=== PATIENT | male | born 1955 | race Caucasian/White ===

== ENCOUNTER 2017-05-09 07:36 | Inpatient (IN) | payer BC ==
[~2017-05-09 07:36] MED LIST: MORPHINE SULFATE 15 MG TABLET.SA PO PRN; ROPIVACAINE HCL/PF 100 MG, EPINEPHrine 0.2 MG, KETOROLAC TROMETHAMINE 30 MG in NORMAL S... IJ PRN; TRANEXAMIC ACID 1,000 MG in NORMAL SALINE 100 ML IV PRN; ceFAZolin SODIUM 1 GM VIAL IV PRN
[2017-05-09] MEDS: RINGER'S SOLUTION,LACTATED 1,000 ML IV PRN ×3 (08:21→18:01)
--- NOTE | 2017-05-09 10:09 | PREOP NOTE ---
Preoperative Progress Note - Preoperative Changes Changes to Preop Condition?: No Changes
[2017-05-09] MEDS ORDERED: RINGER'S SOLUTION,LACTATED 1,000 ML IV ONE ×2 (12:45→13:30)
[2017-05-09] MEDS ORDERED: ONDANSETRON HCL/PF 2 MG/ML VIAL IV PRN (14:19)
[2017-05-09] MEDS ORDERED: ACETAMINOPHEN 500 MG TABLET PO PRN (14:19)
[2017-05-09] MEDS ORDERED: MAGNESIUM HYDROXIDE 30 ML UDC PO PRN (14:19)
[2017-05-09] MEDS ORDERED: diphenhydrAMINE HCL 50 MG/ML VIAL IV PRN (14:19)
[2017-05-09] MEDS ORDERED: HYDROmorphone HCL 2 MG/ML VIAL IV PRN (14:19)
[2017-05-09] MEDS ORDERED: ZOLPIDEM TARTRATE 5 MG TABLET PO PRN (14:19)
[2017-05-09] MEDS ORDERED: PROMETHAZINE HCL 5 MG in DEXTROSE 5 % IN WATER 50 ML IV PRN ×2 (14:19)
[2017-05-09] MEDS ORDERED: MAG HYDROX/ALUMINUM HYD/SIMETH 30 ML UDC PO PRN (14:19)
[2017-05-09] MEDS ORDERED: INSULIN GLARGINE,HUM.REC.ANLOG 100 UNITS/ML VIAL SC PRN (14:20)
--- NOTE | 2017-05-09 14:24 | OR ---
Operative Report - Dictated Report Narrative: Date: 05/09/2017 Preoperative diagnosis: Right Knee degenerative joint disease. Postoperative diagnosis: Right Knee degenerative joint disease. Procedure: Right Total knee arthroplasty. Surgeon: Remington Holland M.D. Au Pair: Dominic Win PA-C Anesthesia: Spinal with regional block and local periarticular joint injection. Complications: None Specimens: Bone for disposal. Estimated blood loss: Minimal. Tourniquet time: 124 Minutes at 350 millimeters of mercury. Retained implants: Depuy Attune size 8 right lugged cemented posterior stabilized femoral component. Size 8 fixed-bearing cemented tibial platform. 8 by 5 millimeter posterior stabilized cross-linked tibial insert. 41 millimeter medialized patella button. Indications: Mr. Kincaid is a 62-year-old gentleman who has had long-standing right knee pain and arthrosis. This patient was followed in my clinic for period of time with significant complaints of right knee pain consistent with arthritic changes. He had failed conservative measures including, but not limited to, activity modification, passage of time, medications, and other conservative measures. Patient wished to proceed with surgical treatment. The risks, benefits, and alternatives were discussed in clinic. The risks of , blood clots, bleeding, infection, nerve/tendon blood vessel/ injury, malposition of components, intraoperative fracture, postoperative limited range of motion, persistent pain, failure of components, and need for additional procedures. Patient wished to proceed consent was obtained after answering all questions. Procedure: After marking the correct extremity on the floor, the patient was taken to the operating room. A timeout was performed. IV antibiotics consisting of Ancef were administered prior to the procedure. A regional followed by spinal anesthetic was induced by anesthesia, per my request, on the operative table with all bony prominences well-padded. Baltazar catheter was placed, and a bump was placed under the operative side buttock. SCDs and CHERI hose were utilized on the nonoperative leg. A well-padded tourniquet was applied to the operative thigh. The operative leg was then pre-scrubbed with alcohol prepped, and draped in a standard sterile fashion. After exsanguinating the extremity with an Esmarch bandage, the tourniquet was inflated. After marking out the anterior knee for standard incision centered over the patella, the skin was incised and dissected down to the joint retinaculum. The joint retinaculum was marked out as well as the horizontal axis of the patella, and a standard medial parapatellar arthrotomy was then made. The most proximal aspect of the quadriceps tendon and the patella tendon insertion were protected from release. A partial synovectomy was performed as well as a resection of the infrapatellar fat pad. The distal femoral fat pad proximal to the trochlea was also resected using cautery. The soft tissues were elevated off the medial aspect of the proximal tibia using a Fry elevator ensuring that we did not transect the medial collateral ligament. Upon initial evaluation range of motion was approximately 10 degrees to 105 degrees of flexion. There were signs of advanced arthrosis in the medial, lateral, and patellofemoral joint spaces. There were large marginal osteophytes which were removed with a rongeur. The knee was hyperflexed and the patella was tucked laterally. Protecting the surrounding soft tissues with Homans, an entry drill was placed down the femoral canal using Whitesides line for guidance into the entry point. The intramedullary femoral alignment rita was utilized in order to cut the distal femur in 5 degrees of valgus resecting 10 millimeters of bone. Next the distal femur was sized to a size 8. A posterior referencing guide was utilized to place the distal femoral cutting block in 3 degrees of external rotation. This was pinned into place. The rotation was confirmed both visually and based on anatomic landmarks. The 4 in 1 cutting jig of the appropriate size was utilized in order to make all bony cuts. The angle wing was used to ensure no notching. Retractors were utilized in order to protect surrounding soft tissues. This cut did not result in any excessive notching. We then cut the box centered over the distal femur. This allowed for resection of the anterior and posterior cruciate ligaments. I then turned my attention to the preparation of the tibia. Using an extra medullary tibial alignment rita, 2 millimeters of bone was resected off the medial articular surface. This was made perpendicular to the mechanical axis of the joint with the alignment rita centered over the ankle mortise. The alignment rita was checked and was noted to be parallel to the mechanical axis, centered over the medial one third of the tibial tubercle, paralleling the anterior surface of the tibia. We then turned our attention to the remaining meniscus and soft tissues. These were removed while protecting the surrounding ligaments and soft tissues. The marginal osteophytes off the anterior, posterior, medial, lateral aspects of the femur and tibia were removed. The tibia was sized out to a size 8. Next the tibia was drilled and punched in an externally rotated position. Next the trial femur and a series of tibial inserts were utilized in order to allow for full extension and maximal flexion. It was found that a 5 millimeter insert gave the best range of motion and stability at multiple flexion points as well as at full extension there was less than 2 mm of gapping both medially and laterally. There is minimal anterior translation with the knee at 90 degrees of flexion and no signs of being able to dislocate the knee. The patella was then prepared. The initial thickness was 25 millimeters. This was reamed down to 15 millimeters parallel to the anterior surface of the patella. It was sized out to a size 41 medialized patella button. This was then drilled and trialed. Without any medial restraint the patella tracked appropriately and did not sublux or dislocate. At this point, it was felt these were the appropriate sized implants, and all trials were removed. The standard periarticular joint injection consisting of ropivacaine, Toradol, and epinephrine were injected into the periarticular joint tissues. The bony surfaces were thoroughly irrigated with a pulsatile- suction saline irrigation device. A bone plug from the prior resected anterior chamfer cut was placed into the drill hole at the distal femur. The bony surfaces were then dried in preparation for placement of the implants. The cement was vacuum mixed per the supervisor beehive kiln's instructions. The cement was placed on the dry bony surfaces and posterior aspect of the implants. The implants were impacted into place, removing all extruded cement. At this point anesthesia administered tranexamic acid per protocol intravenously. The knee was placed in extension with axial loading with the trial insert while the cement cured. Once the cement cured, all remaining extruded cement was removed. The knee was placed through a range of motion with the trial insert to ensure appropriate range of motion and stability. Final range of motion was approximately 0 to 120 degrees. The knee was again thoroughly irrigated with pulsatile saline lavage. The final polyethylene insert was then impacted into place ensuring no retained soft tissues. The remaining periarticular joint injection was injected. A medium Hemovac drain was placed exiting superior laterally. The knee was then placed over a triangle and the arthrotomy was closed with interrupted #1 Vicryl after thoroughly irrigating the joint. The deep and subcutaneous tissues were closed with interrupted 0 and 3-0 Vicryl respectively. Skin was closed with a running subcutaneous 3-0 Monocryl and Prineo Dermabond dressing. 4 x 4's, Sof-Rol, and a full leg Pankaj wrap were applied. All sponge, needle, blade, and instrument counts were correct prior to closing the wounds. Postoperative condition: The patient was awoken and transferred to the postanesthesia care unit in stable condition. Plan is to be admitted to the inpatient medical/surgical floor postoperatively for 24 hours of IV antibiotics , physical therapy, occupational therapy, and medical comanagement. Patient will be weightbearing as tolerated with range of motion as tolerated. DVT prophylaxis will be with SCDs, CHERI hose, and pharmacological anticoagulation. Anticipated hospital stay is approximately 2-4 days.
--- NOTE | 2017-05-09 14:53 | OR ---
Anesthesia Procedure Note - Anesthesia Procedure Note Narrative: Vital Signs - Last Taken Temp 37.0 C 05/09/17 14:35 Pulse 82 05/09/17 14:40 Resp 20 05/09/17 14:40 BP 112/56 05/09/17 14:40 Pulse Ox 97 05/09/17 14:40 O2 Oxygen Delivery Method Nasal Cannula 05/09/17 14:49 ANESTHESIA PROCEDURE NOTE Date of procedure: 05/09/2017. Time of procedure: 1135. Performed by: Louis Khan CRNA Top Lift Compresser: ST Jenifer Gamez Preprocedure diagnosis: Degenerative joint disease right knee. Need for postoperative analgesia. Post procedure diagnosis: Same. Procedure: Right femoral nerve block Indications: Postoperative analgesia. Findings: Patient brought to operating room #[address] in a supine position. Patient was sedated. Right femoral area was prepped with ChloraPrep. Right femoral nerve was identified using ultrasound. One mL of 1% lidocaine was injected at the skin. A 22-gauge 2 inch Stimuplex regional block needle was inserted along with ultrasound guidance and nerve stimulator to confirm needle placement. A total of 30 mL of 0.25% Marcaine with epinephrine 1 200,000 was injected around the right femoral nerve. Regional block needle was removed intact. EBL: Minimal. Fluids: N/A. Specimen: N/A. Post procedure condition: The patient tolerated the procedure well. No complications were noted. Thank you for this consultation Louis Khan CRNA
[2017-05-09] MEDS: KETOROLAC TROMETHAMINE 15 MG/ML VIAL IV SCH ×2 (16:43→21:22)
[2017-05-09] MEDS: ceFAZolin SODIUM 1 GM in DEXTROSE 5 % IN WATER 100 ML IV SCH ×4 (16:44→21:22)
[2017-05-09] MEDS ORDERED: CYANOCOBALAMIN 1,000 MCG TABLET PO PRN (16:45)
[2017-05-09] MEDS: GABAPENTIN 300 MG CAPSULE PO SCH (18:01)
[2017-05-09] MEDS ORDERED: MORPHINE SULFATE 15 MG TABLET.SA PO SCH (21:00)
[2017-05-09] MEDS: rOPINIRole HCL 0.5 MG TABLET PO SCH (21:23)
[2017-05-09] MEDS: ROSUVASTATIN CALCIUM 10 MG TABLET PO SCH (21:23)
[2017-05-09] MEDS: SENNOSIDES/DOCUSATE SODIUM 1 TAB TABLET PO SCH (21:23)
[2017-05-09] MEDS: CALCIUM CARBONATE/VITAMIN D3 1 TAB TABLET PO SCH (21:23)
[2017-05-10] MEDS: RINGER'S SOLUTION,LACTATED 1,000 ML IV PRN (02:13)
[2017-05-10] MEDS: KETOROLAC TROMETHAMINE 15 MG/ML VIAL IV SCH ×4 (04:24→21:21)
[2017-05-10] MEDS: ceFAZolin SODIUM 1 GM in DEXTROSE 5 % IN WATER 100 ML IV SCH ×2 (04:25)
[2017-05-10 06:13] LABS: Hematocrit 32.4 % (42.0-52.0); Hemoglobin 10.8 gm/dL (13.5-18.0); Mean Cell Volume 90.3 fl (78-100); Mean Corpuscular Hemoglobin 30.1 pg (27-31); Mean Corpuscular Hgb Conc 33.3 g/dl (32-36); Mean Platelet Volume 9.7 fl (6.0-9.5); Platelet Count 272 K/mm3 (150-450); Red Blood Count 3.59 M/mm3 (4.7-6.0); White Blood Count 11.6 K/mm3 (4.0-10.5)
[2017-05-10 06:23] LABS: BUN/Creatinine Ratio 24.5 (9.0-21.6); Calcium * 8.7 mg/dL (7.9-10.9); Carbon Dioxide 27.9 mmol/L (24-32.6); Estimated Creat Clear 83.2; Potassium 3.9 mmol/L (3.4-4.6)
[2017-05-10] MEDS: oxyCODONE HCL/ACETAMINOPHEN 1 TAB TABLET PO PRN ×3 (07:25→19:25)
--- NOTE | 2017-05-10 08:01 | PN ---
Subjective - Date and Time Seen Date: 05/10/17 Time: 07:59 Subjective Narrative: Subjective: Reports no concerns. Was able to get to the side of the bed with therapy. Pain is well-controlled. Voiding without any complications. Tolerating by mouth intake. Denies any nausea or vomiting. Denies calf pain. Slept well. Physical exam: Alert and oriented to person, place and time Right lower Extremity: Palpable dorsalis pedis pulse. Sensation grossly intact to light touch. Dressings clean and dry. Able to flex and extend ankle and toes. No excessive drainage. Calf and thigh are soft and nontender. Assessment: Postop day 1 status post right total knee arthroplasty. Plan: Continue with physical and occupational therapy weightbearing as tolerated. Continue with anticoagulation. 24 hours postoperative prophylactic antibiotics. Pain control with goal to rely on oral medications. Continue bowel regimen. Will need 6 weeks with walker or assitive device to protect joint while ambulating during the recovery process. Discharge planning. Discontinue drain and Baltazar catheter. Repeat labs in a.m. Objective - Vitals Vitals: Last Vital Signs Temp 36.8 C 05/10/17 06:39 Pulse 91 05/10/17 06:39 Resp 18 05/10/17 06:39 BP 147/80 05/10/17 06:39 Pulse Ox 96 05/10/17 06:39 - Abnormal Lab Findings Abnormal Lab Findings: Abnormal Lab Results 05/10/17 05/10/17 Range/Units 05:40 05:40 WBC 11.6 H (4.0-10.5) K/mm3 RBC 3.59 L (4.7-6.0) M/mm3 Hgb 10.8 L (13.5-18.0) gm/dL Hct 32.4 L (42.0-52.0) % MPV 9.7 H (6.0-9.5) fl BUN 24 H (6-23) mg/dL BUN/Creatinine Ratio 24.5 H (9.0-21.6) Random Glucose 142 H (70-110) mg/dL Cauti Physician Documentation - Urinary Catheter Management 2-way Urethral Date of Insertion: 05/09/17 Time of Insertion: 12:00 Assessment/Plan - Problems/Diagnosis (1) Status post total right knee replacement Problem: Acute (2) Acute blood loss anemia Problem: Acute (3) Diabetes mellitus Problem: Chronic Qualifiers: Diabetes mellitus type: type 2 (4) Sleep apnea Problem: Chronic (5) Depression Problem: Chronic (6) Hypertension Problem: Chronic (7) Hyperlipemia Problem: Chronic (8) Obesity Problem: Chronic Qualifiers: Obesity classification: adult class 3 (BMI >= 40) Body mass index: BMI 45.0 -49.9
[2017-05-10] MEDS: CALCIUM CARBONATE/VITAMIN D3 1 TAB TABLET PO SCH ×2 (08:31→21:11)
[2017-05-10] MEDS: LOSARTAN POTASSIUM 50 MG TABLET PO SCH (08:32)
[2017-05-10] MEDS: MULTIVIT-MIN/FA/LYCOPEN/LUTEIN 1 TAB TABLET PO SCH (08:32)
[2017-05-10] MEDS: POTASSIUM CHLORIDE 10 MEQ TABLET.SA PO SCH (08:33)
[2017-05-10] MEDS: FLUoxetine HCL 20 MG CAPSULE PO SCH (08:33)
[2017-05-10] MEDS: GABAPENTIN 300 MG CAPSULE PO SCH ×3 (08:33→17:24)
[2017-05-10] MEDS: HYDROCHLOROTHIAZIDE 25 MG TABLET PO SCH (08:33)
[2017-05-10] MEDS: amLODIPine BESYLATE 5 MG TABLET PO SCH (08:33)
[2017-05-10] MEDS ORDERED: BIMATOPROST 25 DROP BTL EACHEYE SCH ×2 (09:00→21:00)
[2017-05-10] MEDS ORDERED: NON-FORMULARY 1 DOSE DOSE (Losartan/Hydrochlorothiazide [Hyzaar 100-25 Tablet] 1 EACH) PO SCH (09:00)
[2017-05-10] MEDS: ENOXAPARIN SODIUM 40 MG/0.4 ML SYRG SC SCH (13:13)
[2017-05-10] MEDS: SENNOSIDES/DOCUSATE SODIUM 1 TAB TABLET PO SCH (21:11)
[2017-05-10] MEDS: ROSUVASTATIN CALCIUM 10 MG TABLET PO SCH (21:12)
[2017-05-10] MEDS: rOPINIRole HCL 0.5 MG TABLET PO SCH (21:12)
[2017-05-10] MEDS: BASAGLAR SC SCH (21:18)
[2017-05-11] MEDS: KETOROLAC TROMETHAMINE 15 MG/ML VIAL IV SCH ×2 (03:32→10:09)
[2017-05-11 06:08] LABS: Hematocrit 30.6 % (42.0-52.0); Hemoglobin 10.1 gm/dL (13.5-18.0); Mean Cell Volume 90.3 fl (78-100); Mean Corpuscular Hemoglobin 29.8 pg (27-31); Mean Platelet Volume 9.6 fl (6.0-9.5); Platelet Count 263 K/mm3 (150-450); Red Blood Count 3.39 M/mm3 (4.7-6.0); White Blood Count 11.6 K/mm3 (4.0-10.5)
[2017-05-11 06:20] LABS: Anion Gap 11.6 mmol/L (6.8-13.8); BUN/Creatinine Ratio 23.2 (9.0-21.6); Carbon Dioxide 29.4 mmol/L (24-32.6); Estimated Creat Clear 82.4
[2017-05-11 06:21] LABS: Calcium * 9.2 mg/dL (7.9-10.9)
[2017-05-11] MEDS: oxyCODONE HCL/ACETAMINOPHEN 1 TAB TABLET PO PRN ×2 (07:29→12:50)
[2017-05-11] MEDS ORDERED: TRULICITY SC SCH (09:00)
[2017-05-11] MEDS: CALCIUM CARBONATE/VITAMIN D3 1 TAB TABLET PO SCH (09:43)
[2017-05-11] MEDS: MULTIVIT-MIN/FA/LYCOPEN/LUTEIN 1 TAB TABLET PO SCH (09:43)
[2017-05-11] MEDS: GABAPENTIN 300 MG CAPSULE PO SCH ×2 (09:44→13:29)
[2017-05-11] MEDS: LOSARTAN POTASSIUM 50 MG TABLET PO SCH (09:44)
[2017-05-11] MEDS: POTASSIUM CHLORIDE 10 MEQ TABLET.SA PO SCH (09:44)
[2017-05-11] MEDS: HYDROCHLOROTHIAZIDE 25 MG TABLET PO SCH (09:44)
[2017-05-11] MEDS: BASAGLAR SC SCH (09:45)
[2017-05-11] MEDS: amLODIPine BESYLATE 5 MG TABLET PO SCH (09:45)
[2017-05-11] MEDS: FLUoxetine HCL 20 MG CAPSULE PO SCH (09:46)
[2017-05-11 11:02] VITALS: BP 145/62
--- NOTE | 2017-05-11 12:07 | DS ---
(1) Status post total right knee replacement Problem: Acute (2) Acute blood loss anemia Problem: Acute (3) Diabetes mellitus Problem: Chronic Qualifiers: Diabetes mellitus type: type 2 (4) Sleep apnea Problem: Chronic (5) Depression Problem: Chronic (6) Hypertension Problem: Chronic (7) Hyperlipemia Problem: Chronic (8) Obesity Problem: Chronic Qualifiers: Obesity classification: adult class 3 (BMI >= 40) Body mass index: BMI 45.0 -49.9 Description of Stay: Mr. Kincaid was admitted to the floor after undergoing right total knee arthroplasty. Tolerated this well. Was admitted to the floor postoperatively for 24 hours of IV antibiotics, pain control, medical comanagement, and occupational and physical therapy. OT and PT were consulted to assist with activities of daily living and ambulation. Was made weightbearing as tolerated with range of motion as tolerated. Pain was initially controlled with IV regimen. This was transitioned to oral once tolerating a by mouth intake. Was resumed on home diet and medications. Had a Baltazar catheter inserted and the operating room which was discontinued on postoperative day 1. A drain was placed intraoperatively into the knee which was discontinued on postoperative day 1. Lovenox SCD and CHERI hose were utilized for DVT prophylaxis. Vital signs remained stable to the hospital course. Serial labs were obtained which showed a final hemoglobin of 10.1 grams. BMP was reviewed and was stable. Physical examination throughout the hospital course showed an extremity that had sensation that was intact to light touch, palpable pulses, a benign wound, motor intact to the toes, ankle, and knee. Knee range of motion was approximately 5 degrees to 60 degrees. Once an oral pain regimen was tolerated and physical therapy goals were met, it was felt that they were stable for discharge to home. Instructions: Continue with weightbearing as tolerated and range of motion as tolerated. It is okay to shower and get the wound wet as long as there is no drainage from the wound. Do not bathe or soak the wound. If there is any drainage from the wound keep the wound clean and dry and cover with dry gauze and tape. Change every 2-3 days as needed if there is any drainage. Cover wound while showering if there is any drainage. Continue with physical therapy. Resume home diet. Report any fever over 101.5 Fahrenheit, uncontrolled pain, increased drainage, foul odor of drainage, new or increased calf pain or shortness of breath, or any other significant complaints. A 325mg dialy aspirin will be started after finishing anticoagulation if not allergic. Continue with CHERI hose on the operative extremity until instructed otherwise. No driving until instructed otherwise. Follow up in approximately 10-14 days. Procedures Performed: see notes below List Procedures: Right total knee arthroplasty Discharge Disposition: Home self care Disposition: Home self-care Condition: Good Discharge Activity: Activity as tolerated, Weight bearing Discharge Diet: Consistent carbs Retirement Therapy: Physicial Therapy Referrals: Remington Holland MD [Primary Care Provider] - Additional Patient Instructions (free text): Follow up with Dr. Holland 05/24 at 10:30 PT at [facility] 05/12/17 at 8:30am. Please fax PT order to [facility] at [phone]. Prescriptions (Any new or edited meds): Enoxaparin Sodium [Lovenox] 40 mg SC Q24H #7 disp.syrin oxyCODONE HCL [Oxycontin] 10 mg PO BID #20 tab.sr.12h oxyCODONE HCL/ACETAMINOPHEN [Percocet 5 MG/325 MG] 2 tab PO Q4H PRN #90 tablet PRN Reason: Moderate Pain Complete Home Medications List: Complete Home Medication List: Atorvastatin Calcium [Lipitor] 20 mg PO DAILY 05/03/17 Bimatoprost [Lumigan] 1 drop EACHEYE DAILY 05/03/17 Calcium Carbonate/Vitamin D3 [Calcium 600-Vit D3 400 Tablet] 1 each PO BID 05/03 Cyanocobalamin (Vitamin B-12) [Vitamin B-12] 1,000 mcg SL PRN PRN 05/03/17 FLUoxetine HCL [Prozac] 40 mg PO DAILY 05/03/17 Gabapentin [Neurontin] 300 mg PO TID 05/03/17 Insulin Glargine,Hum.rec.anlog [Basaglar Kwikpen U-100] 65 unit SQ BID 05/03/17 Losartan/Hydrochlorothiazide [Hyzaar 100-25 Tablet] 1 each PO DAILY 05/03/17 Multivit-Min/FA/Lycopen/Lutein [Centrum Silver Tablet] 1 each PO DAILY 05/03/17 Potassium Chloride [Klor-Con M10] 10 meq PO DAILY 05/03/17 amLODIPine BESYLATE [Norvasc] 5 mg PO DAILY 05/03/17 metFORMIN HCL [Glucophage] 1,000 mg PO BIDWM 05/03/17 rOPINIRole HCL [Requip] 0.5 mg PO HS 05/03/17 Dulaglutide [Trulicity] 1.5 mg SQ TU 05/10/17 Enoxaparin Sodium [Lovenox] 40 mg SC Q24H #7 disp.syrin 05/11/17 Sennosides/Docusate Sodium [Senokot-S] 2 tab PO HS tablet 05/11/17 oxyCODONE HCL [Oxycontin] 10 mg PO BID #20 tab.sr.12h 05/11/17 oxyCODONE HCL/ACETAMINOPHEN [Percocet 5 MG/325 MG] 2 tab PO Q4H PRN #90 tablet 05/11/17 Amb Orders for Discharge: PT Evaluation and Treatment Facility: [facility], Location: Rehabilitation Services
[2017-05-11] MEDS: ENOXAPARIN SODIUM 40 MG/0.4 ML SYRG SC SCH (13:18)
== END 2017-05-11 14:05 | disposition home or self-care (01) | DRG 470 ==
LOC: MS 07:36
PROVIDERS: ADMIT Orthopaedic Surgery; ATTEND Orthopaedic Surgery
PROC: 0SRC0J9 Replacement of Right Knee Joint with Synthetic Substitute, Cemented, Open Approach (ICD-10-PCS; principal; 2017-05-09 11:30)
DX: M17.11 Unilateral primary osteoarthritis, right knee (principal); D62 Acute posthemorrhagic anemia; I10 Essential (primary) hypertension; E78.2 Mixed hyperlipidemia; E11.9 Type 2 diabetes mellitus without complications

== ENCOUNTER 2019-03-29 13:28 | Inpatient (IN) ==
[~2019-03-29 13:28] MED LIST changes: -MORPHINE SULFATE 15 MG TABLET.SA PO PRN; +RINGER'S SOLUTION,LACTATED 1,000 ML IV PRN; -ROPIVACAINE HCL/PF 100 MG, EPINEPHrine 0.2 MG, KETOROLAC TROMETHAMINE 30 MG in NORMAL S... IJ PRN; -TRANEXAMIC ACID 1,000 MG in NORMAL SALINE 100 ML IV PRN; +VANCOMYCIN HCL 1 GM VIAL TP PRN; +VANCOMYCIN HCL 1 GM in DEXTROSE 5 % IN WATER 250 ML IV PRN; -ceFAZolin SODIUM 1 GM VIAL IV PRN
[2019-03-29] MEDS ORDERED: PIPERACILLIN SODIUM/TAZOBACTAM 3.375 GM in DEXTROSE 5 % IN WATER 100 ML IV ONE ×2 (14:15)
--- NOTE | 2019-03-29 14:40 | ANES ---
Anesthesia Pre Procedure Eval Vitals/Labs: Last Vital Signs Temp 36.7 C 03/29/19 14:04 Pulse 101 H 03/29/19 14:04 Resp 18 03/29/19 14:04 BP 139/70 03/29/19 14:04 Pulse Ox 96 03/29/19 14:04 HOME MEDICATIONS Atorvastatin Calcium [Lipitor] 20 mg PO DAILY 05/03/17 [Last Taken 05/09/17 06:00] Bimatoprost [Lumigan] 1 drp EACHEYE DAILY 05/03/17 [Last Taken 05/08/17 21:00] Calcium Carbonate/Vitamin D3 [Calcium 600-Vit D3 400 Tablet] 1 ea PO BID 05/03/17 [Last Taken 05/08/17 21:00] FLUoxetine HCL [Prozac] 40 mg PO DAILY 05/03/17 [Last Taken 05/08/17 09:00] Losartan/Hydrochlorothiazide [Hyzaar 100-25 Tablet] 1 ea PO DAILY 05/03/17 [Last Taken 05/09/17 06:00] Multivit-Min/FA/Lycopen/Lutein [Centrum Silver Tablet] 1 ea PO DAILY 05/03/17 [Last Taken 05/08/17 09:00] Potassium Chloride [Klor-Con M10] 20 meq PO DAILY 05/03/17 [Last Taken 05/08/17 09:00] amLODIPine BESYLATE [Norvasc] 5 mg PO DAILY 05/03/17 [Last Taken 05/09/17 06:00] rOPINIRole HCL [Requip] 0.5 mg PO HS 05/03/17 [Last Taken 05/08/17 21:00] Aspirin [Aspir-Low] 81 mg PO DAILY 03/29/19 [Last Taken Unknown] Insulin Detemir [Levemir Flextouch] 70 unit SQ BID 03/29/19 [Last Taken Unknown] Liraglutide [Victoza 2-López] 1.8 mg SQ DAILY 03/29/19 [Last Taken Unknown] gabapentin 300 mg capsule 300 mg PO BID cap 03/29/19 [Last Taken Unknown] metformin 1,000 mg tablet 1,000 mg PO BID tab 03/29/19 [Last Taken Unknown] Allergies/Adverse Reactions: Allergies Allergy/AdvReac Type Severity Reaction Status Date / Time sulfamethoxazole Allergy Intermediate HIVES, Verified 03/29/19 14:08 [From Bactrim] DYSPNEA trimethoprim [From Bactrim] Allergy Intermediate HIVES, Verified 03/29/19 14:08 DYSPNEA - Planned Procedure Medication List Reviewed:: Yes Allergies Verified: Yes Medical History (Updated 03/29/19 @ 14:07 by Vanessa Rowe) Sleep apnea with use of continuous positive airway pressure (CPAP) Type II diabetes mellitus HTN (hypertension) Hyperlipemia Lower extremity surgery planned Surgical History (Updated 03/29/19 @ 11:51 by Remington Holland MD) Status post total right knee replacement (Chronic) 05/09/17 Skyler H/O rotator cuff surgery Hx of total knee replacement both knees Family History (Updated 03/29/19 @ 13:21 by Golden Arechiga MA) Mother Diabetes Father COPD (chronic obstructive pulmonary disease) - Family Anesthesia History Family History:: no untoward family reactions to anesthesia, no familial bleeding tendencies, no family history of clotting disorders, no family history of premature - Airway/Neck/Teeth Within Normal Limits:: Yes Teeth Condition: intact Neck Exam: full range of motion Mallampatti Score: 3 Thyromental (T-M) distance: > 6 cm Mandibulo Hyoid distance: > 3 cm - Respiratory Respiratory History: sleep apnea, CPAP/BiPAP home use Respiratory Physical: lungs clear, decreased breath sounds Sleep Apnea currently treated: Yes Sleep Apnea by current assessment: Yes - Cardiovascular Cardiac History: hypertension, hyperlipidemia Tolerate Activity: Fair Heart Sounds: S1 & S2, Regular - Anesthesia Assessment and Plan ASA Class: PS, III Anesthesia Type Plan: General LMA, Block - possible for post op pain relief
[2019-03-29] MEDS ORDERED: diphenhydrAMINE HCL 50 MG/ML VIAL IV PRN (16:33)
[2019-03-29] MEDS ORDERED: ACETAMINOPHEN 500 MG TABLET PO PRN (16:33)
[2019-03-29] MEDS ORDERED: ZOLPIDEM TARTRATE 5 MG TABLET PO PRN (16:33)
[2019-03-29] MEDS ORDERED: MAGNESIUM HYDROXIDE 30 ML UDC PO PRN (16:33)
[2019-03-29] MEDS ORDERED: ONDANSETRON HCL/PF 2 MG/ML VIAL IV PRN (16:33)
[2019-03-29] MEDS ORDERED: MORPHINE SULFATE 2 MG/ML DISP.SYRIN IV PRN (16:33)
[2019-03-29] MEDS ORDERED: MAG HYDROX/ALUMINUM HYD/SIMETH 30 ML UDC PO PRN (16:33)
--- NOTE | 2019-03-29 16:33 | POSTOP NO ---
Date of Surgery: 03/29/19 Anesthesia: General Patient Tolerated the Procedure: Well Post Operative Diagnosis/Procedures: Business Systems Developer: Dominic Win PA-C Post-operative Diagnosis: Infected right total knee arthroplasty Finding: Above Procedure: Irrigation and debridement right total knee with exchange of polyethylene insert Estimated Blood Loss: Minimal Specimens: Culture swab x1 tissue to pathology for culture x1
--- NOTE | 2019-03-29 17:15 | ANES ---
Anesthesia Procedure Note Procedure Note: ANESTHESIA PROCEDURE NOTE Date of Procedure: [03/29/2019 Time of procedure: 1650. Performed by: JOCELIN Campos CRNA, MSN Preprocedure diagnosis: Infected right knee implant, long-term anti-biotic therapy requirement. Post procedure diagnosis: Same. Procedure: PICC line placement. Indications: Infected right knee hardware, long-term antibiotic therapy. Findings: See below. Details of the procedure: After surveying the patient's venous access with ultrasound, the patient was prepped with chlorhexidine and 0.25 mL of 1% lidocaine solution was injected at the intended PICC site. The catheter was trimmed to 43 centimeters and flushed with sterile saline solution. After full prep and drape was performed, creating a sterile field the ultrasound was used to reidentify the intended venous access. A #22-gauge IV was inserted under ultrasound guidance, a guidewire was threaded through the 22-gauge catheter and then the catheter was removed. Small zen was made in the skin at the insertion site and the catheter was threaded to its hub. Aspiration of blood was easily achieved and the ports were again flushed with saline solution. The catheter was dressed with sterile dressing available in the PICC kit and a chest x-ray for placement was ordered. EBL: Minimal. Fluids: N/A. Specimen: N/A. Please see Radiology/Ultrasound for retained images of procedure. Post procedure condition: The patient tolerated the procedure well. No complications were noted. Thank you for this consultation. Justice Ramos CRNA, ARNP, MSN
--- NOTE | 2019-03-29 17:18 | ANES ---
Post Anesthesia Discharge - Transfer of Care Transfer of Care handoff given to nurse: Yes - Discharge from PACU Discharge from PACU when meets criteria: Yes - Awake, Xrays taken.
--- NOTE | 2019-03-29 17:48 | ANES ---
Post Anesthesia Assessment - Vital Signs Vitals: Last Vital Signs Temp 36.6 C 03/29/19 17:35 Pulse 24 L 03/29/19 17:35 Resp 26 H 03/29/19 17:35 BP 149/56 03/29/19 17:35 Pulse Ox 94 03/29/19 17:35 Airway Patency: Normal - Mental Status Level Of Consciousness: Awake, Alert, Appropriate - Pain Level Pain Score: 5 - N/V Assessment Nausea/Vomiting Presence: None Dehydration:: No
[2019-03-29] MEDS: RINGER'S SOLUTION,LACTATED 1,000 ML IV PRN (17:55)
[2019-03-29] MEDS: PIPERACILLIN SODIUM/TAZOBACTAM 3.375 GM in DEXTROSE 5 % IN WATER 100 ML IV SCH ×2 (20:18)
[2019-03-29] MEDS: rOPINIRole HCL 0.5 MG TABLET PO SCH (20:19)
[2019-03-29] MEDS: CALCIUM CARBONATE/VITAMIN D3 1 TAB TABLET PO SCH (20:20)
[2019-03-29] MEDS: ASPIRIN 325 MG TABLET.DR PO SCH (20:20)
[2019-03-29] MEDS: SENNOSIDES/DOCUSATE SODIUM 1 TAB TABLET PO SCH (20:21)
[2019-03-29] MEDS: GABAPENTIN 300 MG CAPSULE PO SCH (20:22)
[2019-03-29] MEDS: MORPHINE SULFATE 15 MG TABLET.SA PO SCH (20:27)
[2019-03-29] MEDS ORDERED: VANCOMYCIN HCL 1.5 GM in DEXTROSE 5 % IN WATER 500 ML IV SCH ×2 (21:00)
[2019-03-29] MEDS ORDERED: INSULIN DETEMIR 100 UNITS/ML VIAL SC ONE (21:15)
[2019-03-29] MEDS: INSULIN DETEMIR 100 UNITS/ML VIAL SC SCH (21:34)
[2019-03-29] MEDS: oxyCODONE HCL/ACETAMINOPHEN 1 TAB TABLET PO PRN (21:43)
--- NOTE | 2019-03-29 22:03 | CONS ---
[facility] - General Date of Service: 03/29/19 Narrative: 63-year-old male with a history of right total knee arthroplasty 2 years prior admitted to the hospital following septic joint irrigation and debridement by Dr. Dent today. Currently patient is comfortable in bed with no questions or concerns, minimal discomfort to his left knee. His vital signs have been stable since admission. Patient's only dietary intake this evening has been two ice cream cups, blood sugars are stable. Patient currently feels well. Patient has history of hypertension, hyperlipidemia, insulin dependent diabetes, and sleep apnea. CPAP machine ordered Source: patient Exam Limitations: no limitations - History of Present Illness Allergies/Adverse Reactions: Allergies sulfamethoxazole [From Bactrim] Allergy (Intermediate, Verified 03/29/19 14:08) HIVES, DYSPNEA trimethoprim [From Bactrim] Allergy (Intermediate, Verified 03/29/19 14:08) HIVES, DYSPNEA Home Medications: Home Medications Medication Instructions Recorded Last Taken Atorvastatin Calcium [Lipitor] 20 mg PO DAILY 05/03/17 03/29/19 Bimatoprost [Lumigan] 1 drp EACHEYE DAILY 05/03/17 03/29/19 Calcium Carbonate/Vitamin D3 1 ea PO BID 05/03/17 03/29/19 [Calcium 600-Vit D3 400 Tablet] FLUoxetine HCL [Prozac] 40 mg PO DAILY 05/03/17 03/29/19 Losartan/Hydrochlorothiazide 1 ea PO DAILY 05/03/17 03/29/19 [Hyzaar 100-25 Tablet] Multivit-Min/FA/Lycopen/Lutein 1 ea PO DAILY 05/03/17 03/29/19 [Centrum Silver Tablet] Potassium Chloride [Klor-Con M10] 20 meq PO DAILY 05/03/17 03/29/19 amLODIPine BESYLATE [Norvasc] 5 mg PO DAILY 05/03/17 03/29/19 rOPINIRole HCL [Requip] 0.5 mg PO HS 05/03/17 03/28/19 21:00 Aspirin [Aspir-Low] 81 mg PO DAILY 03/29/19 03/29/19 Dulaglutide [Trulicity] 03/29/19 Unknown Insulin Degludec [Tresiba] 78 unit SQ BID 03/29/19 03/29/19 gabapentin 300 mg capsule 300 mg PO BID cap 03/29/19 03/29/19 metformin 1,000 mg tablet 1,000 mg PO BID tab 03/29/19 03/29/19 Procedures Replacement of Right Knee Joint with Synthetic Substitute, Cemented, Open Approach (05/09/17) Medications - Medications Current Medications: Current Medications Aspirin (Aspirin Enteric Coated) 325 mg PO BID COUNTS INCLUDE 234 BEDS AT THE [facility] Stop: 04/28/19 21:01 Last Admin: 03/29/19 20:20 Dose: 325 mg Documented by: Calcium/Vitamin D (Calcarb 600 With Vitamin D) 1 tab PO BID DARIO Stop: 04/28/19 21:01 Last Admin: 03/29/19 20:20 Dose: 1 tab Documented by: Gabapentin (Neurontin) 300 mg PO BID COUNTS INCLUDE 234 BEDS AT THE [facility] Stop: 04/28/19 21:01 Last Admin: 03/29/19 20:22 Dose: 300 mg Documented by: Lactated Ringer's (Lactated Ringers) 1,000 mls @ 175 mls/hr IV .Q5H43M PRN PRN Reason: HYDRATION Stop: 04/28/19 06:01 Last Infusion: 03/29/19 17:35 Dose: Infused Documented by: Lactated Ringer's (Lactated Ringers) 1,000 mls @ 125 mls/hr IV .Q8H PRN PRN Reason: HYDRATION Stop: 04/28/19 16:34 Last Admin: 03/29/19 17:55 Dose: 125 mls/hr Documented by: Piperacillin Sod/Tazobactam (Sod 3.375 gm/ Dextrose/Water) 100 mls @ 200 mls/hr IV Q6H COUNTS INCLUDE 234 BEDS AT THE [facility]; Protocol Stop: 04/28/19 20:31 Last Infusion: 03/29/19 20:48 Dose: Infused Documented by: Morphine Sulfate (Ms Contin) 15 mg PO Q12H COUNTS INCLUDE 234 BEDS AT THE [facility] Stop: 04/28/19 21:01 Last Admin: 03/29/19 20:27 Dose: 15 mg Documented by: Ropinirole HCl (Requip) 0.[address] [facility] Stop: 04/28/19 21:01 Last Admin: 03/29/19 20:19 Dose: 0.5 mg Documented by: Senna/Docusate Sodium (Senokot-S) [address] [facility] Stop: 04/28/19 21:01 Last Admin: 03/29/19 20:21 Dose: 2 tab Documented by: Vancomycin HCl (Vancomycin) 1 gm TP PRN PRN; Protocol PRN Reason: orthopedic surgery Stop: 04/28/19 06:01 Last Admin: 03/29/19 15:38 Dose: 1 gm Documented by: Review of Systems - Review of Systems Generalized/Overall Review: Absent: Weakness, Chills, Fever EENTM: Present: No Symptoms Reported Respiratory: Absent: Cough, Shortness of Breath, Wheezing Cardiac: Absent: Chest Pain, Palpitations Abdominal: Absent: Nausea, Vomiting, Abdominal Pain Genitourinary: Present: No Symptoms Reported Musculoskeletal: Present: Joint Pain Neurological: Present: No Symptoms Reported Endocrine: Present: No Symptoms Reported Physical Examination - Exam Vital Signs: Vital Signs - Last Taken Temp 36.7 C 03/29/19 18:24 Pulse 91 03/29/19 20:09 Resp 20 03/29/19 20:09 BP 127/68 03/29/19 20:09 Pulse Ox 92 L 03/29/19 20:09 O2 Oxygen Delivery Method Nasal Cannula Constitutional: Present: Alert, Oriented x3, Morbidly obese ENT Exam: Present: hearing grossly normal. Absent: nasal congestion, nasal drainage Eye Exam: bilateral eye: normal inspection Neck: Present: non-tender, supple Respiratory: Present: lungs clear, decreased breath sounds - Due to body habitus. Absent: crackles, rales Cardiovascular/Chest: Present: regular rate, rhythm, no murmur Abdomen: Present: Normal bowel sounds, soft, nontender /Rectal: Present: Exam deferred Skin Exam: Present: normal color, warm/dry Neurologic: Present: alert, oriented x 3 Appearance: Present: appropriate appearance, appropriate insight Eye contact: Present: cooperative, good eye contact Thoughts: Present: normal thought pattern, normal mood /affect - Results and Findings: Narrative: 63-year-old male here following irrigation and debridement of right total knee procedure with Dr. Holland for septic joint. Appropriate labs ordered for the morning, patient is n.p.o. at midnight. We will continue lactated Ringer's at 125 Mls throughout the evening. Patient currently on Vanc and Zosyn for his infection. We will make sure vanc trough is ordered 1 hour prior to his fourth dose. Long-term treatment plan is for patient to go home with his PICC line followed by 6 weeks of IV antibiotics, cultures pending likely speciate in the next 2 to 3 days. Home medications restarted. 50 units of Levemir given tonight which is half of his normal long-acting as patient has an appropriate blood sugar and the only thing he ingested was the 2 cups of ice cream. [facility]. Currently holding Glucophage. Blood pressure stable on home medications. Will order as needed hydralazine to be given if systolic is greater than 170. - Assessments/Findings (1) Diabetes mellitus Problem: Chronic Qualifiers: Diabetes mellitus type: type 2 Diabetes mellitus skilled nursing insulin use: with keno terminal operator use (2) Sleep apnea Problem: Chronic (3) Hypertension Problem: Chronic (4) Hyperlipemia Problem: Chronic
[2019-03-30] MEDS ORDERED: NORMAL SALINE 1,000 ML IV ONE ×2 (00:01→14:37)
[2019-03-30] MEDS: PIPERACILLIN SODIUM/TAZOBACTAM 3.375 GM in DEXTROSE 5 % IN WATER 100 ML IV SCH ×8 (02:23→20:49)
[2019-03-30] MEDS: RINGER'S SOLUTION,LACTATED 1,000 ML IV PRN (03:08)
[2019-03-30] MEDS: VANCOMYCIN HCL 1.5 GM in DEXTROSE 5 % IN WATER 500 ML IV SCH ×4 (04:25→16:43)
[2019-03-30] MEDS: oxyCODONE HCL/ACETAMINOPHEN 1 TAB TABLET PO PRN ×4 (04:56→22:34)
[2019-03-30 05:29] LABS: Hematocrit 35.1 % (42.0-52.0); Hemoglobin 11.2 gm/dL (13.5-18.0); Mean Cell Volume 93.4 fl (78-100); Mean Corpuscular Hemoglobin 29.8 pg (27-31); Mean Corpuscular Hgb Conc 31.9 g/dl (32-36); Mean Platelet Volume 9.3 fl (8-11.3); Platelet Count 322 K/mm3 (150-450); Red Blood Count 3.76 M/mm3 (4.7-6.0); Red Cell Distribution Width 15.4 % (11.5-14.0); White Blood Count 13.4 K/mm3 (4.0-10.5)
[2019-03-30 05:36] LABS: Anion Gap 12.1 mmol/L (6.8-13.8); BUN/Creatinine Ratio 12.5 (9.0-21.6); Calcium * 8.7 mg/dL (7.9-10.9); Carbon Dioxide 28.6 mmol/L (24-32.6); Potassium 3.7 mmol/L (3.4-4.6)
--- NOTE | 2019-03-30 08:56 | PN ---
Subjective - Date and Time Seen Date: 03/30/19 Time: 08:46 Subjective Narrative: Patient reports his pain is been controlled. He does report some discomfort right now as he is getting up with physical therapy. He did feel little feverish earlier this morning but that is calm down. Reports he is tolerating his pain medication well. He has no other complaints at this time. Objective Objective Narrative: Patient is currently standing with wheeled walker two assist. Dressings are intact. He has a small amount of bloody breakthrough on his dressings proximal anterior tibia area. His drains are intact. Neurovascular intact right lower extremity. At this time his Gram stain report is negative for bacteria. His knee aspiration white cell count from the clinic was in the high 130,000s. Culture from the clinic aspiration is growing light staph species. I do not see any preliminary culture reports for the tissue taken at the time of surgery as well as the swab at the time of surgery. - Vitals Vitals: Last Vital Signs Temp 37.3 C 03/30/19 07:42 Pulse 102 H 03/30/19 07:29 Resp 20 03/30/19 07:29 BP 126/57 03/30/19 07:29 Pulse Ox 93 03/30/19 07:29 - Abnormal Lab Findings Abnormal Lab Findings: Abnormal Lab Results 03/30/19 03/30/19 Range/Units 05:27 05:27 WBC 13.4 H (4.0-10.5) K/mm3 RBC 3.76 L (4.7-6.0) M/mm3 Hgb 11.2 L (13.5-18.0) gm/dL Hct 35.1 L (42.0-52.0) % MCHC 31.9 L (32-36) g/dl RDW 15.4 H (11.5-14.0) % Creatinine 1.52 H (0.4-1.4) mg/dL Est GFR (Non-Af Amer) 49 L D (60-130) mL/min Random Glucose 127 H D (70-110) mg/dL - Exam Constitutional: Present: Alert, Oriented x3, Cooperative, No distress Assessment/Plan - Problems/Diagnosis (1) Infection of total right knee replacement Problem: Acute Narrative: At this time awaiting final ID of staph species from cultures as well as sensitivities-continue current antibiotic regimen. Reinforce dressings.. We will keep drains in and reassess output tomorrow. Plan on dressing change tomorrow. We will repeat labs tomorrow a.m. Continue with pain control. (2) Diabetes mellitus Problem: Chronic Qualifiers: Diabetes mellitus type: type 2 Diabetes mellitus correction insulin use: with vermin exterminator use (3) Sleep apnea Problem: Chronic (4) Hypertension Problem: Chronic (5) Hyperlipemia Problem: Chronic (6) Obesity Problem: Chronic Qualifiers: Obesity classification: adult class 3 (BMI >= 40) Body mass index: BMI 45.0-49.9
[2019-03-30] MEDS ORDERED: Liraglutide [Victoza 2-Pak] 1.8 MG SQ SCH (09:00)
[2019-03-30] MEDS ORDERED: LOSARTAN PO SCH (09:00)
[2019-03-30] MEDS ORDERED: BIMATOPROST 25 DROP BTL EACHEYE SCH (09:00)
[2019-03-30] MEDS ORDERED: HYDROCHLOROTHIAZIDE PO SCH (09:00)
[2019-03-30] MEDS: POTASSIUM CHLORIDE 10 MEQ TABLET.SA PO SCH (10:11)
[2019-03-30] MEDS: FLUoxetine HCL 20 MG CAPSULE PO SCH (10:11)
[2019-03-30] MEDS: CALCIUM CARBONATE/VITAMIN D3 1 TAB TABLET PO SCH ×2 (10:11→20:58)
[2019-03-30] MEDS: ROSUVASTATIN CALCIUM 10 MG TABLET PO SCH (10:11)
[2019-03-30] MEDS: MULTIVIT-MIN/FA/LYCOPEN/LUTEIN 1 TAB TABLET PO SCH (10:11)
[2019-03-30] MEDS: amLODIPine BESYLATE 5 MG TABLET PO SCH (10:13)
[2019-03-30] MEDS: GABAPENTIN 300 MG CAPSULE PO SCH ×2 (10:13→20:58)
[2019-03-30] MEDS: ASPIRIN 325 MG TABLET.DR PO SCH ×2 (10:13→20:58)
[2019-03-30] MEDS: HYDROCHLOROTHIAZIDE 25 MG TABLET PO SCH (10:13)
[2019-03-30] MEDS: LOSARTAN POTASSIUM 50 MG TABLET PO SCH (10:13)
[2019-03-30] MEDS: INSULIN DETEMIR 100 UNITS/ML VIAL SC SCH ×2 (10:14→21:03)
[2019-03-30] MEDS: MORPHINE SULFATE 15 MG TABLET.SA PO SCH ×2 (10:26→21:00)
[2019-03-30] MEDS ORDERED: NORMAL SALINE 1,000 ML IV SCH (11:45)
--- NOTE | 2019-03-30 12:00 | PN ---
Subjective - Date and Time Seen Date: 03/30/19 Time: 11:53 Subjective Narrative: From a medical standpoint patient is doing well. No adverse events overnight. Vital signs remained stable and pain well controlled. Patient currently sitting comfortable in his chair, dressing on right leg from ankle to mid thigh with some bloody discharge breakthrough. Patient states pain for only when up moving but tolerable. Only question is whether or not there is any more upcoming surgical events which I told him I did not think so. Objective - Review of Systems Generalized/Overall Review: Denies: Weakness, Chills, Fever Respiratory: Reports: No Symptoms Reported Cardiac: Reports: No Symptoms Reported Abdominal: Reports: No Symptoms Reported Genitourinary Symptoms: Reports: No Symptoms Reported Musculoskeletal Complaints: Reports: Joint Pain - Minimal Neurological: Reports: No Symptoms Reported Skin: Reports: No Symptoms Reported - Vitals Vitals: Last Vital Signs Temp 38.0 C 03/30/19 11:42 Pulse 100 03/30/19 11:42 Resp 20 03/30/19 11:42 BP 114/64 03/30/19 11:42 Pulse Ox 94 03/30/19 11:42 - Abnormal Lab Findings Abnormal Lab Findings: Abnormal Lab Results 03/30/19 03/30/19 Range/Units 05:27 05:27 WBC 13.4 H (4.0-10.5) K/mm3 RBC 3.76 L (4.7-6.0) M/mm3 Hgb 11.2 L (13.5-18.0) gm/dL Hct 35.1 L (42.0-52.0) % MCHC 31.9 L (32-36) g/dl RDW 15.4 H (11.5-14.0) % Creatinine 1.52 H (0.4-1.4) mg/dL Est GFR (Non-Af Amer) 49 L D (60-130) mL/min Random Glucose 127 H D (70-110) mg/dL - Exam Constitutional: Present: Alert, Oriented x3, Cooperative, Elderly, Morbidly obese ENT Exam: Present: hearing grossly normal. Absent: nasal congestion, nasal drainage Neck: Present: supple Respiratory: Present: lungs clear, decreased breath sounds - Due to body habitus Cardiovascular/Chest: Present: regular rate, rhythm, no murmur Abdomen: Present: Normal bowel sounds, soft, nontender, nondistended /Rectal: Present: Exam deferred Extremity: Present: other - Normal sensation and cap refill right lower extremity Skin Exam: Present: other - Venous stasis noted of left lower extremity up to mid hernandez Appearance: Present: appropriate appearance, appropriate insight Eye contact: Present: cooperative, good eye contact Thoughts: Present: normal thought pattern, normal mood /affect Assessment/Plan Plan Narrative: Overall patient feels well and is doing well. Vital signs been stable. Patient has been afebrile. White count came back slightly elevated at 13.6. He also has what appears to be an acute kidney injury with a slightly decreased GFR from his baseline. Should resolve with fluid resuscitation. We will go ahead and order 1 more bag of normal saline to be given even though he is tolerating orals well. Repeat labs in the morning. Bank trough to be drawn 1 hour prior to his fourth dose. Waiting for speciation of preliminary cultures which looks to be a staph species. Blood sugars been slightly elevated today ranged from 180-220, will go ahead and add a sliding scale insulin to high-dose for him to be checked before meals at bedtime. Patient fairly comfortable and has no questions or concerns at this time. Nurse to call with any issues. - Problems/Diagnosis (1) Diabetes mellitus Problem: Chronic Qualifiers: Diabetes mellitus type: type 2 Diabetes mellitus keno terminal operator insulin use: with keno terminal operator use (2) Sleep apnea Problem: Chronic (3) Hypertension Problem: Chronic (4) Hyperlipemia Problem: Chronic
[2019-03-30] MEDS: INSULIN LISPRO 100 UNITS/ML VIAL SC SCH ×3 (12:14→21:04)
[2019-03-30] MEDS ORDERED: VANCOMYCIN HCL LEVEL XX ONE (15:30)
[2019-03-30] MEDS: SENNOSIDES/DOCUSATE SODIUM 1 TAB TABLET PO SCH (20:57)
[2019-03-30] MEDS: rOPINIRole HCL 0.5 MG TABLET PO SCH (22:34)
[2019-03-30] MEDS: BIMATOPROST 25 DROP BTL EACHEYE SCH (22:35)
[2019-03-31] MEDS: PIPERACILLIN SODIUM/TAZOBACTAM 3.375 GM in DEXTROSE 5 % IN WATER 100 ML IV SCH ×8 (03:26→20:55)
[2019-03-31] MEDS: VANCOMYCIN HCL 1.5 GM in DEXTROSE 5 % IN WATER 500 ML IV SCH ×4 (04:17→16:00)
[2019-03-31 05:58] LABS: Hematocrit 31.4 % (42.0-52.0); Hemoglobin 9.9 gm/dL (13.5-18.0); Mean Cell Volume 93.7 fl (78-100); Mean Corpuscular Hemoglobin 29.6 pg (27-31); Mean Corpuscular Hgb Conc 31.5 g/dl (32-36); Mean Platelet Volume 9.4 fl (8-11.3); Neutrophil # 9.5 K/mm3 (1.3-6.0); Neutrophil % 78.2 % (42-75.0); Platelet Count 307 K/mm3 (150-450); Red Blood Count 3.35 M/mm3 (4.7-6.0); Red Cell Distribution Width 15.2 % (11.5-14.0); White Blood Count 12.2 K/mm3 (4.0-10.5)
[2019-03-31 06:11] LABS: Anion Gap 12.9 mmol/L (6.8-13.8); BUN/Creatinine Ratio 14.8 (9.0-21.6); Calcium * 8.4 mg/dL (7.9-10.9); Carbon Dioxide 27.6 mmol/L (24-32.6); Estimated Creat Clear 41.1; Potassium 3.5 mmol/L (3.4-4.6)
[2019-03-31 06:24] LABS: CRP 20.8 mg/dL (0.0-0.9)
[2019-03-31] MEDS: INSULIN LISPRO 100 UNITS/ML VIAL SC SCH ×4 (06:40→21:45)
--- NOTE | 2019-03-31 07:38 | PN ---
Subjective - Date and Time Seen Date: 03/31/19 Time: 07:28 Subjective Narrative: Jake reports overall he is feeling well. He has not had any further fever or symptoms. His pain is controlled at rest. He reports more discomfort in his buttock area with lying down than he does in his knee. With activity and ambulating reports some soreness in his knee. He has no other complaints at this time. Objective Objective Narrative: Bandages intact, drain intact, I did take bandages off and I remove the drains, he has a mild amount of bleeding from the drain sites, he has minimal bleeding at the distal incision, the incision is well approximated without erythema, chronic venous stasis edema of the right lower extremity, labs reviewed show a sed rate of 117, CRP of 20.8, white count slightly improved to 12,200, his creatinine did go from 1.52 on the 8th-1.96 this morning, cultures show staph growth- ID and sensitivity still pending - Vitals Vitals: Last Vital Signs Temp 37.3 C 03/31/19 06:28 Pulse 83 03/31/19 06:28 Resp 20 03/31/19 06:28 BP 132/71 03/31/19 06:28 Pulse Ox 98 03/31/19 06:28 - Abnormal Lab Findings Abnormal Lab Findings: Abnormal Lab Results 03/31/19 03/31/19 03/31/19 Range/Units 06:00 06:00 06:00 WBC 12.2 H (4.0-10.5) K/mm3 RBC 3.35 L (4.7-6.0) M/mm3 Hgb 9.9 L (13.5-18.0) gm/dL Hct 31.4 L (42.0-52.0) % MCHC 31.5 L (32-36) g/dl RDW 15.2 H (11.5-14.0) % Immature Gran # (Auto) 0.04 H (0.000-0.0310) K/mm3 Neutrophils % 78.2 H (42-75.0) % Lymphocytes % 10.1 L (20-51) % Monocytes % 9.1 H (0.0-9) % Neutrophils # 9.5 H (1.3-6.0) K/mm3 Lymphocytes # 1.24 L (1.5-3.5) k/mm3 Monocytes # 1.1 H (0.0-1.0) k/mm3 ESR 117 H (0-10) mm/hr BUN 29 H D (6-23) mg/dL Creatinine 1.96 H D (0.4-1.4) mg/dL Est GFR (Non-Af Amer) 37 L D (60-130) mL/min C-Reactive Prot, Quant 20.8 H (0.0-0.9) mg/dL - Exam Constitutional: Present: Alert, Oriented x3, Cooperative, No distress Assessment/Plan - Problems/Diagnosis (1) Infection of total right knee replacement Problem: Acute Narrative: Continue IV antibiotics-await sensitivities, pharmacy to manage dosage, discussed with his nurse Jemma application of new compressive dressings, can change as needed for drainage, CHERI hose to the right lower extremity (2) Diabetes mellitus Problem: Chronic Qualifiers: Diabetes mellitus type: type 2 Diabetes mellitus snf insulin use: with snf use (3) Sleep apnea Problem: Chronic (4) Hypertension Problem: Chronic (5) Hyperlipemia Problem: Chronic (6) Obesity Problem: Chronic Qualifiers: Obesity classification: adult class 3 (BMI >= 40) Body mass index: BMI 45.0-49.9 (7) Acute renal insufficiency Problem: Acute Narrative: Medical management with recommendations.
[2019-03-31] MEDS: oxyCODONE HCL/ACETAMINOPHEN 1 TAB TABLET PO PRN ×3 (08:00→22:33)
[2019-03-31] MEDS: POTASSIUM CHLORIDE 10 MEQ TABLET.SA PO SCH (08:47)
[2019-03-31] MEDS: MORPHINE SULFATE 15 MG TABLET.SA PO SCH ×2 (08:48→21:33)
[2019-03-31] MEDS: amLODIPine BESYLATE 5 MG TABLET PO SCH (08:48)
[2019-03-31] MEDS: HYDROCHLOROTHIAZIDE 25 MG TABLET PO SCH (08:49)
[2019-03-31] MEDS: FLUoxetine HCL 20 MG CAPSULE PO SCH (08:49)
[2019-03-31] MEDS: CALCIUM CARBONATE/VITAMIN D3 1 TAB TABLET PO SCH ×2 (08:50→21:34)
[2019-03-31] MEDS: MULTIVIT-MIN/FA/LYCOPEN/LUTEIN 1 TAB TABLET PO SCH (08:50)
[2019-03-31] MEDS: LOSARTAN POTASSIUM 50 MG TABLET PO SCH (08:50)
[2019-03-31] MEDS: ROSUVASTATIN CALCIUM 10 MG TABLET PO SCH (08:51)
[2019-03-31] MEDS: GABAPENTIN 300 MG CAPSULE PO SCH ×2 (08:51→21:34)
[2019-03-31] MEDS: ASPIRIN 325 MG TABLET.DR PO SCH ×2 (08:51→21:34)
[2019-03-31] MEDS: INSULIN DETEMIR 100 UNITS/ML VIAL SC SCH ×2 (08:54→21:45)
--- NOTE | 2019-03-31 10:33 | PN ---
Subjective - Date and Time Seen Date: 03/31/19 Time: 10:10 Subjective Narrative: Complains of right knee pain, denies chest pain or shortness of breath. Objective - Review of Systems Generalized/Overall Review: Denies: Chills, Fever Respiratory: Denies: Shortness of Breath Cardiac: Denies: Chest Pain Musculoskeletal Complaints: Reports: Joint Pain - Right knee Misc: All systems neg except as marked - Vitals Vitals: Last Vital Signs Temp 36.6 C 03/31/19 10:22 Pulse 88 03/31/19 10:22 Resp 20 03/31/19 10:22 BP 115/56 03/31/19 10:22 Pulse Ox 94 03/31/19 10:22 - Abnormal Lab Findings Abnormal Lab Findings: Abnormal Lab Results 03/31/19 03/31/19 03/31/19 Range/Units 06:00 06:00 06:00 WBC 12.2 H (4.0-10.5) K/mm3 RBC 3.35 L (4.7-6.0) M/mm3 Hgb 9.9 L (13.5-18.0) gm/dL Hct 31.4 L (42.0-52.0) % MCHC 31.5 L (32-36) g/dl RDW 15.2 H (11.5-14.0) % Immature Gran # (Auto) 0.04 H (0.000-0.0310) K/mm3 Neutrophils % 78.2 H (42-75.0) % Lymphocytes % 10.1 L (20-51) % Monocytes % 9.1 H (0.0-9) % Neutrophils # 9.5 H (1.3-6.0) K/mm3 Lymphocytes # 1.24 L (1.5-3.5) k/mm3 Monocytes # 1.1 H (0.0-1.0) k/mm3 ESR 117 H (0-10) mm/hr BUN 29 H D (6-23) mg/dL Creatinine 1.96 H D (0.4-1.4) mg/dL Est GFR (Non-Af Amer) 37 L D (60-130) mL/min C-Reactive Prot, Quant 20.8 H (0.0-0.9) mg/dL - Exam Constitutional: Present: Alert, Cooperative, Well developed, Well nourished, No distress, Middle aged ENT Exam: Present: hearing grossly normal Neck: Absent: lymphadenopathy (R), lymphadenopathy (L) Respiratory: Present: lungs clear, normal breath sounds, no respiratory distress, No wheezing. Absent: crackles, rhonchi Cardiovascular/Chest: Present: normal peripheral pulses, regular rate, rhythm, no edema, no murmur Abdomen: Present: Normal bowel sounds, soft, nontender, obese Extremity: Present: no pedal edema, swelling - Right knee: Wound dressing in place, other Skin Exam: Present: normal color, warm/dry Appearance: Present: appropriate appearance Eye contact: Present: cooperative Thoughts: Present: normal mood /affect Assessment/Plan Plan Narrative: 53-year-old male with a septic right knee joint status post irrigation on March 29, 2019. He is currently being treated with vancomycin and piperacillintazobactam. His renal function has been progressively worsening and may be secondary to the co-administration of vancomycin and p iperacillintazobactam. His GFR is decreased to 37 today, we will hold his metformin at this time. Check BMP in the morning. Blood pressures and blood sugars are stable. Vanco dose to be adjusted by pharmacy due to worsening renal function. Wound 1 wound culture is growing MRSA that is sensitive to vancomycin. Once we get the final cultures from the second specimen we may be able to consider discontinuing piperacillintazobactam. - Problems/Diagnosis (1) Acute renal insufficiency Problem: Acute (2) Infection of total right knee replacement Problem: Acute (3) Diabetes mellitus Problem: Chronic Qualifiers: Diabetes mellitus type: type 2 Diabetes mellitus usp insulin use: with buttermaker continuous churn use
[2019-03-31] MEDS ORDERED: VANCOMYCIN HCL LEVEL XX ONE (15:30)
[2019-03-31] MEDS: SENNOSIDES/DOCUSATE SODIUM 1 TAB TABLET PO SCH (21:35)
[2019-03-31] MEDS: BIMATOPROST 25 DROP BTL EACHEYE SCH (22:33)
[2019-03-31] MEDS: rOPINIRole HCL 0.5 MG TABLET PO SCH (22:33)
[2019-04-01] MEDS: PIPERACILLIN SODIUM/TAZOBACTAM 3.375 GM in DEXTROSE 5 % IN WATER 100 ML IV SCH ×4 (02:57→08:37)
[2019-04-01] MEDS: VANCOMYCIN HCL 1.5 GM in DEXTROSE 5 % IN WATER 500 ML IV SCH ×2 (03:28)
[2019-04-01 06:24] LABS: Anion Gap 11.6 mmol/L (6.8-13.8); BUN/Creatinine Ratio 19.4 (9.0-21.6); Calcium * 9.2 mg/dL (7.9-10.9); Carbon Dioxide 29.3 mmol/L (24-32.6); Estimated Creat Clear 48.8; Potassium 3.9 mmol/L (3.4-4.6)
[2019-04-01] MEDS: INSULIN LISPRO 100 UNITS/ML VIAL SC SCH ×4 (07:14→22:06)
[2019-04-01] MEDS: oxyCODONE HCL/ACETAMINOPHEN 1 TAB TABLET PO PRN ×3 (07:15→22:08)
[2019-04-01] MEDS: amLODIPine BESYLATE 5 MG TABLET PO SCH (08:30)
[2019-04-01] MEDS: MORPHINE SULFATE 15 MG TABLET.SA PO SCH ×2 (08:30→22:08)
[2019-04-01] MEDS: MULTIVIT-MIN/FA/LYCOPEN/LUTEIN 1 TAB TABLET PO SCH (08:30)
[2019-04-01] MEDS: HYDROCHLOROTHIAZIDE 25 MG TABLET PO SCH (08:31)
[2019-04-01] MEDS: ASPIRIN 325 MG TABLET.DR PO SCH ×2 (08:31→22:04)
[2019-04-01] MEDS: LOSARTAN POTASSIUM 50 MG TABLET PO SCH (08:31)
[2019-04-01] MEDS: FLUoxetine HCL 20 MG CAPSULE PO SCH (08:32)
[2019-04-01] MEDS: GABAPENTIN 300 MG CAPSULE PO SCH ×2 (08:32→22:05)
[2019-04-01] MEDS: POTASSIUM CHLORIDE 10 MEQ TABLET.SA PO SCH (08:33)
[2019-04-01] MEDS: ROSUVASTATIN CALCIUM 10 MG TABLET PO SCH (08:33)
[2019-04-01] MEDS: CALCIUM CARBONATE/VITAMIN D3 1 TAB TABLET PO SCH ×2 (08:33→22:05)
[2019-04-01] MEDS: INSULIN DETEMIR 100 UNITS/ML VIAL SC SCH ×2 (09:00→22:05)
[2019-04-01] MEDS: SENNOSIDES/DOCUSATE SODIUM 1 TAB TABLET PO SCH (09:00)
--- NOTE | 2019-04-01 10:55 | PN ---
Subjective - Date and Time Seen Date: 04/01/19 Time: 10:45 Subjective Narrative: Feels good, no complaints, had a bowel movement today. He did walk with physical therapy this morning. He has right knee pain when standing from a sitting position. Objective - Review of Systems Generalized/Overall Review: Denies: Chills, Fever EENTM: Denies: Mouth Swelling Cardiac: Denies: Chest Pain Abdominal: Denies: Abdominal Pain Musculoskeletal Complaints: Reports: Joint Pain - Right knee Misc: All systems neg except as marked - Vitals Vitals: Last Vital Signs Temp 36.5 C 04/01/19 07:40 Pulse 94 04/01/19 08:31 Resp 16 04/01/19 07:40 BP 145/67 04/01/19 08:31 Pulse Ox 98 04/01/19 07:40 - Abnormal Lab Findings Abnormal Lab Findings: Abnormal Lab Results 03/31/19 04/01/19 Range/Units 15:37 06:00 BUN 32 H (6-23) mg/dL Creatinine 1.65 H (0.4-1.4) mg/dL Est GFR (Non-Af Amer) 45 L D (60-130) mL/min Vancomycin Trough 23.6 H (10.0-20.0) mcg/mL - Exam Constitutional: Present: Alert, Cooperative, Well developed, Well nourished, Obese ENT Exam: Present: hearing grossly normal Neck: Present: non-tender, trachea midline. Absent: lymphadenopathy (R), lymphadenopathy (L) Respiratory: Present: chest non-tender, lungs clear, no respiratory distress, no accessory muscle use, No wheezing Cardiovascular/Chest: Present: normal peripheral pulses, regular rate, rhythm, no chest tenderness, no murmur, edema - 1+ bilateral lower extremities Abdomen: Present: Normal bowel sounds, soft, nontender, obese Extremity: Present: pedal edema Skin Exam: Present: normal color, warm/dry Neurologic: Present: alert, normal mood/affect Appearance: Present: appropriate appearance Eye contact: Present: cooperative, good eye contact Thoughts: Present: normal mood /affect Assessment/Plan Plan Narrative: 53-year-old male with a septic right knee joint status post irrigation on March 29, 2019. He is currently being treated with vancomycin and piperacillintazobactam. His renal function has been progressively worsening and may be secondary to the co-administration of vancomycin and piperacillintazobactam. His GFR is improving from 37 to 45 today, recommend continuing to hold his metformin at this time, can restart metformin tomorrow, April 02, 2019. Check BMP in the morning. Blood pressures and blood sugars are stable. Wound cultures growing MRSA that is sensitive to vancomycin. I rec ommend discontinuing the piperacillintazobactam. I will sign off at this time and feel free to reconsult as needed. - Problems/Diagnosis (1) Acute renal insufficiency Problem: Acute (2) Infection of total right knee replacement Problem: Acute (3) Diabetes mellitus Problem: Chronic Qualifiers: Diabetes mellitus type: type 2 Diabetes mellitus termite treater helper insulin use: with group home use (4) Hypertension Problem: Chronic
--- NOTE | 2019-04-01 11:39 | PN ---
Subjective - Date and Time Seen Date: 04/01/19 Time: 11:34 Subjective Narrative: Jarrod reports she is feeling well. He reports he is having less pain with getting up and ambulating. He feels clinically that overall he feels better and that each day things continue to improve. He has no complaints at this point time. Objective Objective Narrative: Bandages show dry bloody breakthrough on dressings. His calf is supple. He is currently sitting up in the chair and appears comfortable. He is neurovascular intact in the right lower extremity. His his intraoperative cultures have grown MRSA that is sensitive to vancomycin. His creatinine is improved from yesterday at 1.96-1.65 today. - Vitals Vitals: Last Vital Signs Temp 37.2 C 04/01/19 11:00 Pulse 88 04/01/19 11:00 Resp 18 04/01/19 11:00 BP 124/54 04/01/19 11:00 Pulse Ox 94 04/01/19 11:00 - Abnormal Lab Findings Abnormal Lab Findings: Abnormal Lab Results 03/31/19 04/01/19 Range/Units 15:37 06:00 BUN 32 H (6-23) mg/dL Creatinine 1.65 H (0.4-1.4) mg/dL Est GFR (Non-Af Amer) 45 L D (60-130) mL/min Vancomycin Trough 23.6 H (10.0-20.0) mcg/mL - Exam Constitutional: Present: Alert, Oriented x3, Cooperative, No distress Assessment/Plan - Problems/Diagnosis (1) Infection of total right knee replacement Problem: Acute Narrative: Discontinue Zosyn, continue vancomycin with pharmacy managing dosing, dressing changes as needed for bloody breakthrough, continue compressive CHERI hose, repeat CBC BMP ESR and CRP tomorrow, discussed with Jake as long as he continues to show progressive improvement in labs and clinically anticipate discharge possibly tomorrow, case management to work on arranging needs (2) Diabetes mellitus Problem: Chronic Qualifiers: Diabetes mellitus type: type 2 Diabetes mellitus assisted insulin use: with assisted use (3) Sleep apnea Problem: Chronic (4) Hypertension Problem: Chronic (5) Hyperlipemia Problem: Chronic (6) Obesity Problem: Chronic Qualifiers: Obesity classification: adult class 3 (BMI >= 40) Body mass index: BMI 45.0-49.9 (7) Acute renal insufficiency Problem: Acute Narrative: Creatinine improved, repeat labs tomorrow, discontinue Zosyn, continue vancomycin with pharmacy adjusting dosage
[2019-04-01] MEDS ORDERED: HEPARIN SOD.,PORCINE 100 UNITS/ML IV ONE (16:15)
[2019-04-01] MEDS: VANCOMYCIN HCL 1.25 GM in DEXTROSE 5 % IN WATER 250 ML IV SCH ×2 (16:20)
[2019-04-01] MEDS ORDERED: HEPARIN SODIUM,PORCINE 5,000 UNITS/ML VIAL ONE (18:13)
[2019-04-01] MEDS ORDERED: HEPARIN SOD.,PORCINE 100 UNITS/ML ONE (18:15)
[2019-04-01] MEDS: BIMATOPROST 25 DROP BTL EACHEYE SCH (22:05)
[2019-04-01] MEDS: rOPINIRole HCL 0.5 MG TABLET PO SCH (22:05)
[2019-04-02] MEDS: oxyCODONE HCL/ACETAMINOPHEN 1 TAB TABLET PO PRN ×3 (02:44→11:43)
[2019-04-02] MEDS: VANCOMYCIN HCL 1.25 GM in DEXTROSE 5 % IN WATER 250 ML IV SCH ×4 (04:00→15:18)
[2019-04-02 06:22] LABS: Anion Gap 11.4 mmol/L (6.8-13.8); BUN/Creatinine Ratio 20.6 (9.0-21.6); Calcium * 9.7 mg/dL (7.9-10.9); Carbon Dioxide 29.4 mmol/L (24-32.6); Estimated Creat Clear 57.1; Hematocrit 32.1 % (42.0-52.0); Hemoglobin 10.4 gm/dL (13.5-18.0); Mean Cell Volume 91.5 fl (78-100); Mean Corpuscular Hemoglobin 29.6 pg (27-31); Mean Corpuscular Hgb Conc 32.4 g/dl (32-36); Mean Platelet Volume 9.4 fl (8-11.3); Neutrophil # 7.4 K/mm3 (1.3-6.0); Neutrophil % 71.8 % (42-75.0); Platelet Count 376 K/mm3 (150-450); Potassium 3.8 mmol/L (3.4-4.6); Red Blood Count 3.51 M/mm3 (4.7-6.0); Red Cell Distribution Width 14.9 % (11.5-14.0); White Blood Count 10.3 K/mm3 (4.0-10.5)
[2019-04-02 06:27] LABS: CRP 15.8 mg/dL (0.0-0.9)
[2019-04-02] MEDS: INSULIN LISPRO 100 UNITS/ML VIAL SC SCH ×3 (07:15→17:42)
[2019-04-02] MEDS: INSULIN DETEMIR 100 UNITS/ML VIAL SC SCH (09:47)
[2019-04-02] MEDS: MORPHINE SULFATE 15 MG TABLET.SA PO SCH (09:48)
[2019-04-02] MEDS: HYDROCHLOROTHIAZIDE 25 MG TABLET PO SCH (09:48)
[2019-04-02] MEDS: LOSARTAN POTASSIUM 50 MG TABLET PO SCH (09:48)
[2019-04-02] MEDS: ASPIRIN 325 MG TABLET.DR PO SCH (09:48)
[2019-04-02] MEDS: FLUoxetine HCL 20 MG CAPSULE PO SCH (09:48)
[2019-04-02] MEDS: SENNOSIDES/DOCUSATE SODIUM 1 TAB TABLET PO SCH (09:48)
[2019-04-02] MEDS: ROSUVASTATIN CALCIUM 10 MG TABLET PO SCH (09:49)
[2019-04-02] MEDS: MULTIVIT-MIN/FA/LYCOPEN/LUTEIN 1 TAB TABLET PO SCH (09:49)
[2019-04-02] MEDS: GABAPENTIN 300 MG CAPSULE PO SCH (09:49)
[2019-04-02] MEDS: CALCIUM CARBONATE/VITAMIN D3 1 TAB TABLET PO SCH (09:49)
[2019-04-02] MEDS: amLODIPine BESYLATE 5 MG TABLET PO SCH (09:49)
[2019-04-02] MEDS: POTASSIUM CHLORIDE 10 MEQ TABLET.SA PO SCH (09:49)
--- NOTE | 2019-04-02 13:15 | DS ---
(1) Sepsis Problem: Acute Qualifiers: Sepsis type: methicillin resistant Staphylococcus aureus Sepsis acute organ dysfunction status: with acute organ dysfunction Severe sepsis acute organ dysfunction type: acute renal failure Severe sepsis shock status: without septic shock (2) Acute renal insufficiency Problem: Acute (3) Infection of total right knee replacement Problem: Acute Qualifiers: Encounter type: initial encounter Qualified Code(s): T84.53XA - Infection and inflammatory reaction due to internal right knee prosthesis, initial encounter (4) Depression Problem: Chronic (5) Diabetes mellitus Problem: Chronic Qualifiers: Diabetes mellitus type: type 2 Diabetes mellitus ad terminal makeup operator insulin use: with shelter use (6) Hyperlipemia Problem: Chronic (7) Hypertension Problem: Chronic (8) Obesity Problem: Chronic Qualifiers: Obesity classification: adult class 3 (BMI >= 40) Body mass index: BMI 50.0-59.9 (9) Sleep apnea Problem: Chronic Description of Stay: Mr. Kincaid was admitted to the floor after undergoing irrigation and debridement of right total knee arthroplasty. Tolerated this well. Was admitted to the floor postoperatively for IV antibiotics, pain control, medical comanagement, and occupational and physical therapy. Cultures are both blood and his joint were positive for MRSA sensitive to vancomycin. He was initially placed on vancomycin and Zosyn with the Zosyn being discontinued once cultures were final. He did have some renal insufficiency which responded to alteration in medications and IV fluids. Serial labs throughout the hospitalization showed some improved white count and improved CRP. OT and PT were consulted to assist with activities of daily living and ambulation. Was made weightbearing as tolerated with range of motion as tolerated. Pain was initially controlled with IV regimen. This was transitioned to oral once tolerating a by mouth intake. Was resumed on home diet and medications. A drain was placed intraoperatively into the knee which was discontinued on postoperative day 2. Aspirin SCD and CHERI hose were utilized for DVT prophylaxis. Vital signs remained stable to the hospital course. Physical examination throughout the hospital course showed an extremity that had sensation that was intact to light touch, palpable pulses, a benign wound, motor intact to the toes, ankle, and knee. Once his cultures were final and he was stable on his vancomycin dosing and it was arranged for outpatient IV antibiotics, it was felt that they were stable for discharge to home. Instructions: Continue with weightbearing as tolerated and range of motion as tolerated. Keep the wound dry. Do not bathe or soak the wound. Cover wound while showering if there is any drainage. Continue with physical therapy. Resume home diet. Report any fever over 101.5 Fahrenheit, uncontrolled pain, increased drainage, foul odor of drainage, new or increased calf pain or shortness of breath, or any other significant complaints. A 325mg dialy aspirin twice a day will be continued. Continue with CHERI hose on the operative extremity until instructed otherwise. No driving until instructed otherwise. Follow up in approximately 10-14 days. He is to have IV infusions of vancomycin every 12 hours through [facility]. He will need to have vancomycin monitoring as well as renal monitoring through this. This will continue for 6 weeks. PICC line care will be also performed. Procedures Performed: see notes below List Procedures: Right knee irrigation debridement and exchange of polyethylene, PICC line placement Results and Findings: Lab Pending Results 03/30/19 05:27: WBC 13.4 H, RBC 3.76 L, Hgb 11.2 L, Hct 35.1 L, MCV 93.4, MCH 29.8, MCHC 31.9 L, RDW 15.4 H, Plt Count 322, MPV 9.3 03/30/19 05:27: Sodium 137, Plasma Sodium 137, Potassium 3.7, Chloride 100, Carbon Dioxide 28.6, Anion Gap 12.1, BUN 19, Creatinine 1.52 H, Est GFR (Non-Af Amer) 49 L D, BUN/Creatinine Ratio 12.5, Random Glucose 127 H D, Calcium 8.7 03/31/19 06:00: WBC 12.2 H, RBC 3.35 L, Hgb 9.9 L, Hct 31.4 L, MCV 93.7, MCH 29.6, MCHC 31.5 L, RDW 15.2 H, Plt Count 307, MPV 9.4, Immature Gran % (Auto) 0.30, Immature Gran # (Auto) 0.04 H, Neutrophils % 78.2 H, Lymphocytes % 10.1 L, Monocytes % 9.1 H, Eosinophils % 2.0, Basophils % 0.3, Nucleated RBC % 0.0, Neutrophils # 9.5 H, Lymphocytes # 1.24 L, Monocytes # 1.1 H, Eosinophils # 0.3, Absolute Basophils 0.0 03/31/19 06:00: ESR 117 H 03/31/19 06:00: Sodium 137, Plasma Sodium 137, Potassium 3.5, Chloride 100, Carbon Dioxide 27.6, Anion Gap 12.9, BUN 29 H D, Creatinine 1.96 H D, Est GFR (Non-Af Amer) 37 L D, BUN/Creatinine Ratio 14.8, Random Glucose 83 D, Calcium 8.4, C-Reactive Prot, Quant 20.8 H 03/31/19 15:37: Vancomycin Trough 23.6 H 04/01/19 06:00: Sodium 137, Plasma Sodium 137, Potassium 3.9, Chloride 100, Carbon Dioxide 29.3, Anion Gap 11.6, BUN 32 H, Creatinine 1.65 H, Est GFR (Non- Af Amer) 45 L D, BUN/Creatinine Ratio 19.4, Random Glucose 86, Calcium 9.2 04/02/19 05:50: Sodium 138, Plasma Sodium 138, Potassium 3.8, Chloride 101, Carbon Dioxide 29.4, Anion Gap 11.4, BUN 29 H, Creatinine 1.41 H, Est GFR (Non- Af Amer) 54 L, BUN/Creatinine Ratio 20.6, Random Glucose 76, Calcium 9.7, C- Reactive Prot, Quant 15.8 H 04/02/19 05:50: WBC 10.3, RBC 3.51 L, Hgb 10.4 L, Hct 32.1 L, MCV 91.5, MCH 29.6, MCHC 32.4, RDW 14.9 H, Plt Count 376, MPV 9.4, Immature Gran % (Auto) 0.60 H, Immature Gran # (Auto) 0.06 H, Neutrophils % 71.8, Lymphocytes % 14.4 L, Monocytes % 9.2 H, Eosinophils % 3.7 H, Basophils % 0.3, Nucleated RBC % 0.0, Neutrophils # 7.4 H, Lymphocytes # 1.48 L, Monocytes # 1.0, Eosinophils # 0.4, Absolute Basophils 0.0 04/02/19 05:50: ESR 119 H Discharge Location: Home Disposition: Home self-care Condition: Fair Discharge Activity: Activity as tolerated, Weight bearing Discharge Diet: Consistent carbs Referrals: Oliver Davidson DO [Primary Care Provider] - Additional Patient Instructions (free text): Fax facesheet, Rx orders and DC Summary to [facility] Attn: Aracelis. fax :[phone]. Start antibiotic infusions at [facility] tomorrow at 07:15am. They stated for the evening dose you will check in through the ED Prescriptions (Any new or edited meds): Aspirin [Aspirin Enteric Coated] 325 mg PO BID #60 tablet. Morphine Sulfate [Ms Contin] 15 mg PO Q12H #7 tablet. oxyCODONE HCL/ACETAMINOPHEN [Percocet 5 MG/325 MG] 2 tab PO Q4H PRN #60 tab PRN Reason: Moderate Pain (Pain Scale 4-6) Vancomycin HCl [Vancomycin] 1.25 gm IV Q12H #80 vial Complete Home Medications List: Complete Home Medication List: Atorvastatin Calcium [Lipitor] 20 mg PO DAILY 05/03/17 Bimatoprost [Lumigan] 1 drp LIZBET HS 05/03/17 Calcium Carbonate/Vitamin D3 [Calcium 600-Vit D3 400 Tablet] 1 ea PO BID 05/03/17 FLUoxetine HCL [Prozac] 40 mg PO DAILY 05/03/17 Losartan/Hydrochlorothiazide [Hyzaar 100-25 Tablet] 1 ea PO DAILY 05/03/17 Multivit-Min/FA/Lycopen/Lutein [Centrum Silver Tablet] 1 ea PO DAILY 05/03/17 Potassium Chloride [Klor-Con M10] 20 meq PO DAILY 05/03/17 amLODIPine BESYLATE [Norvasc] 5 mg PO DAILY 05/03/17 rOPINIRole HCL [Requip] 0.5 mg PO HS 05/03/17 Dulaglutide [Trulicity] 0.75 mg SQ WE 03/29/19 Insulin Degludec [Tresiba] 78 unit SQ BID 03/29/19 gabapentin 300 mg capsule 300 mg PO BID cap 03/29/19 metformin 1,000 mg tablet 1,000 mg PO BID tab 03/29/19 Aspirin [Aspirin Enteric Coated] 325 mg PO BID #60 tablet. 04/02/19 Insulin Lispro [Humalog] 0 units SC ACHSINS vial 04/02/19 Losartan Potassium [Cozaar] 100 mg PO DAILY tab 04/02/19 Morphine Sulfate [Ms Contin] 15 mg PO Q12H #7 tablet. 04/02/19 Sennosides/Docusate Sodium [Senokot-S] 2 tab PO DAILY tab 04/02/19 Vancomycin HCl [Vancomycin] 1.25 gm IV Q12H #80 vial 04/02/19 oxyCODONE HCL/ACETAMINOPHEN [Percocet 5 MG/325 MG] 2 tab PO Q4H PRN #60 tab 04/02/19
[2019-04-02 22:01] VITALS: BP 166/76
== END 2019-04-02 18:45 | disposition home or self-care (01) | DRG 466 ==
LOC: SUR 13:28 → MS 17:21
PROVIDERS: ADMIT Orthopaedic Surgery; ATTEND Orthopaedic Surgery
DX: G47.33 Obstructive sleep apnea (adult) (pediatric); Z79.4 Long term (current) use of insulin; M00.061 Staphylococcal arthritis, right knee; E66.01 Morbid (severe) obesity due to excess calories; T84.53XA Infection and inflammatory reaction due to internal right knee prosthesis, initial encounter; Z96.651 Presence of right artificial knee joint; A41.02 Sepsis due to Methicillin resistant Staphylococcus aureus; Z68.43 Body mass index [BMI] 50.0-59.9, adult; E78.5 Hyperlipidemia, unspecified; F32.9 Major depressive disorder, single episode, unspecified; I10 Essential (primary) hypertension; B95.62 Methicillin resistant Staphylococcus aureus infection as the cause of diseases classified elsewhere; E11.9 Type 2 diabetes mellitus without complications; N17.8 Other acute kidney failure
CPT/HCPCS: 36415; 71010; 71045; 73560; 80048; 80202; 85025; 85027; 85652; 86140; 87070; 87075; 87077; 87186; 88304; 88312; 94660; 97110; 97116; 97161; 97165; C1751